=== PATIENT | male | born 1995 | race Caucasian/White ===

== ENCOUNTER 2018-06-19 12:40 | Emergency (ER) | payer BC ==
[~2018-06-19] VITALS: Ht 182.9 cm; Wt 65.9 kg
[2018-06-19 12:50] VITALS: TEMP 99.4
[2018-06-19] MEDS ORDERED: NORCO 325 MG-51 TAB PO (13:58)
[2018-06-19 14:10] VITALS: BP 131/78; PULSE 81
== END 2018-06-19 14:10 | disposition home or self-care (01) ==
LOC: COL.ER 12:40
DX: S42.001A Fracture of unspecified part of right clavicle, initial encounter for closed fracture (principal); S00.81XA Abrasion of other part of head, initial encounter; S80.211A Abrasion, right knee, initial encounter; X58.XXXA Exposure to other specified factors, initial encounter